=== PATIENT | female | born 1935 | race Caucasian/White ===

== ENCOUNTER → 2016-05-09 | Outpatient (CLI) | payer MEDICARE, OTHER | LOC: RAD 11:13 | PROVIDERS: ATTEND Physician Assistant | DX: J45.21 Mild intermittent asthma with (acute) exacerbation (principal) | CPT/HCPCS: 71020 ==

== ENCOUNTER → 2016-10-25 | Outpatient (CLI) | payer MEDICARE, OTHER ==
[2016-10-25 09:56] LABS: ALANINE AMINOTRANSFERASE 19 U/L (9-52); ALKALINE PHOSPHATASE 54 U/L (38-126); ANION GAP 9 (5-19); ASPARTATE AMINO TRANSFERASE 19 U/L (14-36); BILIRUBIN,DIRECT 0.3 mg/dL (0.0-0.4); BILIRUBIN,TOTAL 0.8 mg/dL (0.2-1.3); BLOOD UREA NITROGEN 21 mg/dL (7-20); CALCIUM 8.8 mg/dL (8.4-10.2); CARBON DIOXIDE 27 mmol/L (22-30); CHLORIDE 102 mmol/L (98-107); CHOLESTEROL 227.62 mg/dL (0-200); CREATININE RESULT 1.08 mg/dL (0.52-1.25); Direct HDL 47 mg/dL (>40); GLUCOSE 111 mg/dL (75-110); MAGNESIUM 1.7 mg/dL (1.6-2.3); POTASSIUM 4.5 mmol/L (3.6-5.0); TOTAL PROTEIN 7.1 g/dL (6.3-8.2); TRIGLYCERIDES 150 mg/dL (<150)
[2016-10-25 10:07] LABS: DIRECT LDL 153 mg/dL (<100)
== END ==
LOC: OD 08:51
PROVIDERS: ATTEND Internal Medicine Cardiovascular Disease
DX: I47.1 Supraventricular tachycardia (principal); E78.2 Mixed hyperlipidemia; Z79.899 Other long term (current) drug therapy
CPT/HCPCS: 36415; 80048; 80061; 80076; 83735

== ENCOUNTER → 2017-05-09 | Outpatient (CLI) | payer MEDICARE, OTHER ==
[2017-05-09 11:15] LABS: ALANINE AMINOTRANSFERASE 27 U/L (9-52); ALBUMIN 4.3 g/dL (3.5-5.0); ALKALINE PHOSPHATASE 55 U/L (38-126); ANION GAP 10 (5-19); ASPARTATE AMINO TRANSFERASE 23 U/L (14-36); BILIRUBIN,DIRECT 0.2 mg/dL (0.0-0.4); BILIRUBIN,TOTAL 0.6 mg/dL (0.2-1.3); BLOOD UREA NITROGEN 21 mg/dL (7-20); CALCIUM 9.4 mg/dL (8.4-10.2); CARBON DIOXIDE 28 mmol/L (22-30); CHLORIDE 104 mmol/L (98-107); CHOLESTEROL 173.87 mg/dL (0-200); CREATINE KINASE 64 U/L (30-135); GLUCOSE 140 mg/dL (75-110); MAGNESIUM 1.7 mg/dL (1.6-2.3); POTASSIUM 5.1 mmol/L (3.6-5.0); SODIUM 142.1 mmol/L (137-145); TOTAL PROTEIN 7.1 g/dL (6.3-8.2); TRIGLYCERIDES 139 mg/dL (<150)
[2017-05-09 11:26] LABS: DIRECT LDL 90 mg/dL (<100)
== END ==
LOC: OD 09:46
PROVIDERS: ATTEND Internal Medicine Cardiovascular Disease
DX: E83.42 Hypomagnesemia (principal); E78.2 Mixed hyperlipidemia; I47.1 Supraventricular tachycardia; Z79.899 Other long term (current) drug therapy
CPT/HCPCS: 36415; 80048; 80061; 80076; 82550; 83735

== ENCOUNTER → 2017-06-25 | Outpatient (CLI) | payer MEDICARE, OTHER ==
[2017-06-25 11:34] LABS: ANION GAP 14 (5-19); BLOOD UREA NITROGEN 23 mg/dL (7-20); CALCIUM 9.4 mg/dL (8.4-10.2); CARBON DIOXIDE 25 mmol/L (22-30); CHLORIDE 98 mmol/L (98-107); GLUCOSE 120 mg/dL (75-110); POTASSIUM 4.8 mmol/L (3.6-5.0); SODIUM 136.7 mmol/L (137-145)
== END ==
LOC: OD 10:35
PROVIDERS: ATTEND Internal Medicine Cardiovascular Disease
DX: I47.1 Supraventricular tachycardia (principal); E87.5 Hyperkalemia
CPT/HCPCS: 36415; 80048

== ENCOUNTER → 2017-08-11 | Outpatient (CLI) | payer MEDICARE, OTHER ==
[2017-08-11 11:09] LABS: ANION GAP 9 (5-19); BLOOD UREA NITROGEN 21 mg/dL (7-20); CALCIUM 9.3 mg/dL (8.4-10.2); CARBON DIOXIDE 30 mmol/L (22-30); CHLORIDE 97 mmol/L (98-107); GLUCOSE 279 mg/dL (75-110); POTASSIUM 4.8 mmol/L (3.6-5.0); SODIUM 135.5 mmol/L (137-145)
== END ==
LOC: OD 10:06
PROVIDERS: ATTEND Internal Medicine Cardiovascular Disease
DX: N18.3 Chronic kidney disease, stage 3 (moderate) (principal)
CPT/HCPCS: 36415; 80048